=== PATIENT | male | born 1995 | race Caucasian/White ===

== ENCOUNTER 2024-07-11 15:01 | Outpatient (CLI) | payer BC, SELFPAY ==
--- NOTE | 2024-07-11 | ECG_ITS ---
Test Date: 2024-07-11 14:34:58 Measurements Intervals [place] Rate: 72 P: 28 [place]: 203 QRS: 74 QRSD: 94 T: 71 QT: 364 QTc: 400 Interpretive Statements SINUS RHYTHM POSSIBLE LEFT ATRIAL ENLARGEMENT BORDERLINE ECG No previous ECG available for comparison Electronically Signed On 07-11-2024 15:52:28 CDT by Raimundo Wallace D.O.
== END 2024-07-11 15:02 | disposition home or self-care (01) ==
DX: F90.2 Attention-deficit hyperactivity disorder, combined type (principal); R94.31 Abnormal electrocardiogram [ECG] [EKG]
CPT/HCPCS: 93005